=== PATIENT | male | born 1980 ===

== ENCOUNTER 2017-01-06 12:27 | Emergency (ER) | payer SELFPAY ==
[2017-01-06 12:40] VITALS: BP 130/74; PULSE 99; RESP 16; TEMP 98.4; O2SAT 100
--- NOTE | 2017-01-06 13:26 | ED PDOC ---
HPI: Allergic Reaction Time Seen by Provider: 01/06/17 12:53 Chief Complaint (Nursing): Abnormal Skin Integrity Chief Complaint (Provider): Itchy Rash History Per: Patient History/Exam Limitations: no limitations Onset/Duration Of Symptoms: Days (7 days) Current Symptoms Are (Timing): Still Present Possible Cause: Unknown Associated Symptoms: Skin Rash. denies: Swelling, Trouble Swallowing, Itching Home/EMS Treatment: Benadryl Additional Complaint(s): Aniceto Ledesma, a 36 year old male, presents to the ED complaining of a itchy rash on his neck, face and upper shoulder x1 week. He reports that he hodges snot had similar symptoms in the past. The patient states that he has been taking benadryl with no relief. Denies new medications, new lotions, new food. Patient also denies itchiness or swelling of the mouth and throat. Past Medical History Reviewed: Historical Data, Nursing Documentation, Vital Signs Vital Signs: Last Vital Signs Temp 98.4 F 01/06/17 12:36 Pulse 99 H 01/06/17 12:36 Resp 16 01/06/17 12:36 BP 130/74 01/06/17 12:36 Pulse Ox 100 01/06/17 12:36 - Medical History PMH: No Chronic Diseases - Surgical History Surgical History: No Surg Hx - Family History Family History: States: No Known Family Hx - Social History Current smoker - smoking cessation education provided: No Alcohol: None Drugs: Denies - Home Medications Home Medications: Ambulatory Orders Medication Instructions Recorded predniSONE [predniSONE Tab] 20 mg PO DAILY #12 tab 01/06/17 - Allergies Allergies/Adverse Reactions: Allergies Allergy/AdvReac Type Severity Reaction Status Date / Time No Known Allergies Allergy Verified 01/06/17 12:36 Review of Systems ROS Statement: Except As Marked, All Systems Reviewed And Found Negative Skin: Positive for: Rash (itchy rash to face, neck and upper shoulders.) Physical Exam - Reviewed Nursing Documentation Reviewed: Yes Vital Signs Reviewed: Yes - Physical Exam Appears: Positive for: Well, Non-toxic, No Acute Distress Head Exam: Positive for: ATRAUMATIC, NORMAL INSPECTION, NORMOCEPHALIC Skin: Positive for: Normal Color, Warm, Dry, Rash (Raised erythematous blanching rash varying in size and shape on forehead back and shoulders with defined borders.) Eye Exam: Positive for: Normal appearance, EOMI, PERRL Cardiovascular/Chest: Positive for: Regular Rate, Rhythm, Chest Non Tender. Negative for: Tachycardia Respiratory: Positive for: Normal Breath Sounds. Negative for: Rales, Rhonchi, Wheezing, Respiratory Distress Neurologic/Psych: Positive for: Alert, Oriented, Gait - ECG O2 Sat by Pulse Oximetry: 100 (RA) Pulse Ox Interpretation: Normal - Progress ED Course And Treament: 1253 Initial impression: 36 year old male presenting with rash on face, neck and upper shoulders. Initial Plan: * SOLU-medrol 125mg IM * Reevaluation Scribe Attestation Documented by Magdalena Forbes acting as a scribe for Lluvia Gonzalez PA-C. Scribe Attestation All medical record entries made by the Scribe were at my direction and personally dictated by me. I have reviewed the chart and agree that the record accurately reflects my personal performance of the history, physical exam, medical decision making, and the department course for this patient. I have also personally directed, reviewed, and agree with the discharge instructions and disposition. Disposition - Clinical Impression Clinical Impression: Urticaria - Patient ED Disposition Is Patient to be Admitted: No Counseled Patient/Family Regarding: Studies Performed - Disposition Referrals: [facility] [Outside] [facility] [Outside] Disposition: Routine/Home Disposition Time: 01:30 Condition: STABLE Additional Instructions: Continue benadryl. 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 Prescriptions: predniSONE [predniSONE Tab] 20 mg PO DAILY #12 tab Instructions: Urticaria (ED) Forms: [email or web address] (Kazakh)
== END 2017-01-06 13:41 | disposition home or self-care (01) ==
LOC: H.ER 12:27
DX: L50.9 Urticaria, unspecified (principal)
CPT/HCPCS: 96372; 99281; J2930

== ENCOUNTER 2017-01-10 20:56 | Emergency (ER) | payer SELFPAY ==
[2017-01-10 21:06] VITALS: BP 155/90; PULSE 103; RESP 16; TEMP 98.7; O2SAT 98
--- NOTE | 2017-01-10 21:31 | ED PDOC ---
HPI: Allergic Reaction Time Seen by Provider: 01/10/17 21:07 Chief Complaint (Nursing): Abnormal Skin Integrity Chief Complaint (Provider): rash History Per: Patient History/Exam Limitations: no limitations Onset/Duration Of Symptoms: Days (1) Current Symptoms Are (Timing): Still Present Associated Symptoms: Skin Rash Home/EMS Treatment: Benadryl, Steroids Additional History Per: Patient Additional Complaint(s): 36 y/o male presents with pruritic rash to face,and chin x 1 day. Patient states he was seen here for same rash 01/04/17, was given an injection and sent home with prednisone, but notes rash to have returned today. Denies facial swelling, difficulty speaking/swallowing, chest pain, shortness of breath, palpitations, known allergen. Past Medical History Reviewed: Historical Data, Nursing Documentation, Vital Signs Vital Signs: Last Vital Signs Temp 98.7 F 01/10/17 21:04 Pulse 103 H 01/10/17 21:04 Resp 16 01/10/17 21:04 BP 155/90 H 01/10/17 21:04 Pulse Ox 98 01/10/17 21:04 - Medical History PMH: No Chronic Diseases - Surgical History Surgical History: No Surg Hx - Family History Family History: States: No Known Family Hx - Living Arrangements Living Arrangements: With Family - Home Medications Home Medications: Ambulatory Orders Medication Instructions Recorded predniSONE [predniSONE Tab] 20 mg PO DAILY #12 tab 01/06/17 Loratadine [Claritin] 10 mg PO DAILY #5 tab 01/10/17 predniSONE [Prednisone] 60 mg PO DAILY #12 tab 01/10/17 - Allergies Allergies/Adverse Reactions: Allergies Allergy/AdvReac Type Severity Reaction Status Date / Time No Known Allergies Allergy Verified 01/06/17 12:36 Review of Systems ROS Statement: Except As Marked, All Systems Reviewed And Found Negative Skin: Positive for: Rash Physical Exam - Reviewed Nursing Documentation Reviewed: Yes Vital Signs Reviewed: Yes - Physical Exam Appears: Positive for: Well, Non-toxic, No Acute Distress Head Exam: Positive for: ATRAUMATIC, NORMAL INSPECTION, NORMOCEPHALIC Skin: Positive for: Rash (hives noted left side of face, chin, and upper chest; no erythema, lesions, tenderness noted) ENT: Positive for: Normal ENT Inspection Cardiovascular/Chest: Positive for: Regular Rate, Rhythm Respiratory: Positive for: Normal Breath Sounds Extremity: Positive for: Normal ROM Neurologic/Psych: Positive for: Alert, Oriented - ECG O2 Sat by Pulse Oximetry: 98 - Progress ED Course And Treament: IV solumedrol, IV pepcid On re-eval, rash resolved. Patient educated on findings, advised to discontinue current prednisone treatment, rx for prednisone, claritin provided. Follow up [facility] 2-3 days. Return to ED for worsening/concerning symptoms. Disposition - Clinical Impression Clinical Impression: Urticaria Counseled Patient/Family Regarding: Diagnosis, Need For Followup, Rx Given - Disposition Referrals: [facility] [Outside] Disposition: Routine/Home Disposition Time: 23:44 Condition: IMPROVED Prescriptions: Loratadine [Claritin] 10 mg PO DAILY #5 tab predniSONE [Prednisone] 60 mg PO DAILY #12 tab Instructions: Urticaria (ED)
== END 2017-01-11 00:25 | disposition home or self-care (01) ==
LOC: H.ER 20:56
DX: L50.9 Urticaria, unspecified (principal)
CPT/HCPCS: 96374; 96375; 99283; J2930

== ENCOUNTER 2018-09-28 21:26 | Emergency (ER) | payer SELFPAY ==
[2018-09-28 21:46] VITALS: RESP 18
--- NOTE | 2018-09-28 22:08 | ED PDOC ---
HPI: General Adult Time Seen by Provider: 09/28/18 22:05 Chief Complaint (Nursing): Lower Extremity Problem/Injury Chief Complaint (Provider): RIGHT KNEE PAIN History Per: Patient (37 Y/O MALE HERE WITH RIGHT KNEE SWELLING/PAIN X 3 DAYS AFTER KNEELING ON KNEE. DENIES ANY FEVERS/CHILLS.) Past Medical History Reviewed: Historical Data, Nursing Documentation, Vital Signs Vital Signs: Last Vital Signs Temp 98.5 F 09/28/18 21:43 Pulse 77 09/28/18 21:43 Resp 18 09/28/18 21:43 BP 170/81 H 09/28/18 21:43 Pulse Ox 99 09/28/18 21:43 Primary Care Provider: FAMILY PROVIDER,NO - Family History Family History: States: No Known Family Hx - Home Medications Home Medications: Ambulatory Orders Medication Instructions Recorded predniSONE [predniSONE Tab] 20 mg PO DAILY #12 tab 01/06/17 Loratadine [Claritin] 10 mg PO DAILY #5 tab 01/10/17 predniSONE [Prednisone] 60 mg PO DAILY #12 tab 01/10/17 - Allergies Allergies/Adverse Reactions: Allergies Allergy/AdvReac Type Severity Reaction Status Date / Time No Known Allergies Allergy Verified 09/28/18 21:46 Review of Systems ROS Statement: Except As Marked, All Systems Reviewed And Found Negative Physical Exam - Reviewed Nursing Documentation Reviewed: Yes Vital Signs Reviewed: Yes - Physical Exam Appears: Positive for: Well, Non-toxic, No Acute Distress Head Exam: Positive for: ATRAUMATIC, NORMAL INSPECTION, NORMOCEPHALIC Skin: Positive for: Warm. Negative for: Normal Color (ERYTHEMA NOTED DISTAL TO PATELLA. SMALL SWELLING NOTED PRE-PATELLAR REGION.) Eye Exam: Positive for: EOMI, Normal appearance, PERRL ENT: Positive for: Normal ENT Inspection Neck: Positive for: Normal, Painless ROM Cardiovascular/Chest: Positive for: Regular Rate, Rhythm Respiratory: Positive for: CNT, Normal Breath Sounds Gastrointestinal/Abdominal: Positive for: Normal Exam, Soft Back: Positive for: Normal Inspection Extremity: Positive for: Normal ROM Neurological/Psych: Positive for: Awake, Alert, Normal Tone - Laboratory Results Result Diagrams: 09/28/18 22:36 09/28/18 22:36 - ECG O2 Sat by Pulse Oximetry: 99 - Progress ED Course And Treament: xry of knee: no obvious abnormality toradol 15mg iv BC x 2 vbg with lactate 2.2 wbc 15 vanc 1 gm iv x 1 dose ns 1 liter repeat vbg in [address] of knee with contrast ordered: Disposition - Clinical Impression Clinical Impression: Cellulitis - Patient ED Disposition Is Patient to be Admitted: Transfer of Care - Disposition Disposition: Transfer of Care Disposition Time: 23:59 Condition: FAIR Patient Signed Over To: Smitha Gambino Handoff Comments: pending ct reading/vbg repeat/ re-eval
[2018-09-28 22:42] LABS: VENOUS BLOOD GAS PCO2 54 mmHg (40-60); VENOUS BLOOD GAS PO2 25 mm/Hg (30-55); VENOUS BLOOD PH 7.31 (7.32-7.43)
[2018-09-28 22:43] LABS: BASO # 0.1 K/uL (0.0-0.2); BASO % 0.3 % (0.0-2.0); EOS % 0.3 % (0.0-4.0); HEMOGLOBIN 14.7 g/dL (12.0-18.0); LYMPH # 2.3 K/uL (1.0-4.3); LYMPH % 15.6 % (20.0-40.0); MEAN CELL VOLUME 92.2 fl (80.0-94.0); MEAN CORPUSCULAR HGB CONC 33.6 g/dL (33.0-37.0); MEAN PLATELET VOLUME 8.4 fl (7.2-11.7); MONO # 1.5 K/uL (0.0-0.8); MONO % 10.3 % (0.0-10.0); NEUT % 73.5 % (50.0-75.0); RBC 4.74 Mil/uL (4.40-5.90); RED CELL DISTRIBUTION WIDTH 13.8 % (11.5-14.5)
[2018-09-28 22:56] LABS: BLOOD UREA NITROGEN 14 mg/dl (9-20); GFR NON-AFRICAN AMERICAN > 60
[2018-09-28] MEDS ORDERED: Iohexol 300 100 ML IJ ONE (23:01)
[2018-09-28] MEDS ORDERED: Sodium Chloride 0.9% 50 ML IV ONE (23:02)
[2018-09-28] MEDS ORDERED: Vancomycin 1 g Inj ONE (23:05)
[2018-09-28] MEDS ORDERED: Sodium Chloride 0.9% 1,000 ML IV STA (23:47)
--- NOTE | 2018-09-29 01:23 | ED PDOC ---
- Laboratory Results Result Diagrams: 09/28/18 22:36 09/28/18 22:36 Lab Results: pO2 25 mm/Hg (30-55) L 09/28/18 22:38 VBG pH 7.31 (7.32-7.43) L 09/28/18 22:38 VBG pCO2 54 mmHg (40-60) 09/28/18 22:38 VBG HCO3 23.3 mmol/L 09/28/18 22:38 VBG Total CO2 28.9 mmol/L (22-28) H 09/28/18 22:38 VBG O2 Sat (Calc) 51.1 % (40-65) 09/28/18 22:38 VBG Base Excess 0.0 mmol/L (0.0-2.0) 09/28/18 22:38 VBG Potassium 3.5 mmol/L (3.6-5.2) L 09/28/18 22:38 Sodium 139.0 mmol/L (132-148) 09/28/18 22:38 Chloride 105.0 mmol/L (98-107) 09/28/18 22:38 Glucose 104 mg/dL (75-110) 09/28/18 22:38 Lactate 2.2 mmol/L (0.7-2.1) H 09/28/18 22:38 FiO2 21.0 % 09/28/18 22:38 - ECG O2 Sat by Pulse Oximetry: 99 (RA) Pulse Ox Interpretation: Normal Medical Decision Making Medical Decision Makin: --Patient endorsed to be by Irina Ascencio, follow-up on CT scan results and second lactate. Patient is otherwise comfortable. --Patient states for past week he has been doing work at home requiring him to knee. he states he has been kneeling on hardwood floor with shorts and no knee pads. denies fever. CT of the right knee after administration of contrast Clinical statement: swelling. Technique: Multiple axial CT images were obtained with 5 mm cuts through the right knee after administration of 95 mL of Omnipaque 300 intravenous contrast. Coronal and sagittal reconstructions were also obtained. No comparison is available. Findings: The osseous structures do not demonstrate any fractures or dislocations. The joint spaces are well-maintained. There is no evidence of a joint effusion. Prepatellar and pretibial soft tissue swelling and inflammation is noted. There is no evidence of a focal mass or fluid collection. Impression: 1. No acute osseous abnormality. 2. The joint spaces well maintained. 3. Anterior subcutaneous inflammation and soft tissue swelling. 01:40 --temp: 97.8 hr: 61 b/p: 119/66 o2sat: 100% rm air. repeat lactate is 1.0. patient stable for d/c. Rx given for keflex and bactrim. patient instructed to return to ED if redness worsens, fever develops, swelling or increase pain. Ibuprofen OTC for pain. Referral to [facility]. Patient verbalizes understanding and agrees with plan. Disposition - Clinical Impression Clinical Impression: Cellulitis - POA Present On Arrival: None - Disposition Disposition: Routine/Home Disposition Time: 01:40 Condition: GOOD Prescriptions: Cephalexin [cephalexin] 500 mg PO QID #14 cap Sulfamethoxazole/Trimethoprim [Bactrim DS 800 mg-160 mg] 1 tab PO BID #14 tab Instructions: Cellulitis (Skin Infection), Adult (DC) Forms: [employer] (Qatari) Print Language: THAI
[2018-09-29 01:36] LABS: VENOUS BLOOD GAS BASE EXCESS -1.5 mmol/L (0.0-2.0); VENOUS BLOOD GAS PCO2 41 mmHg (40-60); VENOUS BLOOD GAS PO2 50 mm/Hg (30-55); VENOUS BLOOD PH 7.37 (7.32-7.43)
[2018-09-29 02:03] VITALS: BP 119/66; PULSE 61; TEMP 97.8
[2018-09-29 02:43] VITALS: O2SAT 99
--- NOTE | 2018-09-29 08:20 | CT ---
Date of service: 09/28/2018 PROCEDURE: HISTORY: ERYTHEMA/SWELLING RIGHT KNEE COMPARISON: None TECHNIQUE: FINDINGS: No acute fracture dislocation. No joint effusion. Mild prepatellar and pretibial soft tissue swelling. IMPRESSION: As above.
--- NOTE | 2018-09-29 08:37 | RAD ---
Date of service: 09/28/2018 PROCEDURE: Right Knee Radiographs. HISTORY: KNEE PAIN COMPARISON: None. TECHNIQUE: 2 views obtained. FINDINGS: BONES: Normal. No fracture. JOINTS: Normal. No osteoarthritis. JOINT EFFUSION: None. OTHER FINDINGS: None. IMPRESSION: Normal radiographs of the right knee.
== END 2018-09-29 01:57 | disposition home or self-care (01) ==
LOC: H.ER 21:26
DX: L03.115 Cellulitis of right lower limb (principal)
CPT/HCPCS: 73562; 73701; 80048; 82803; 85025; 87040; 96374; 99284; J1885; J7030; Q9967